=== PATIENT | male | born 1995 | race Caucasian/White ===

== ENCOUNTER 2018-05-26 01:21 | Emergency (ER) | payer BC, OTHER ==
[~2018-05-26] VITALS: Ht 172.7 cm; Wt 87.3 kg
[~2018-05-26 01:21] MED LIST: ARIP5TAB12 PO; ARIP5TAB20 PO; BUSP10TA95 PO; BUSP5TAB59 PO; MIRT15TA3 PO; MIRT30TA6 PO; SULF1TAB38 PO
[2018-05-26] MEDS ORDERED: LACTATED RINGERS 1,000 ML IV ONE ×2 (01:28→02:13)
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
[2018-05-26 01:48] LABS: BILIRUBIN,URINE NEGATIVE (NEGATIVE); CLARITY,URINE CLEAR; COLOR,URINE YELLOW; GLUCOSE, URINE (UA) NEGATIVE (NEGATIVE); KETONES,URINE NEGATIVE (NEGATIVE); LEUKOCYTE ESTERASE ,URINE NEGATIVE (NEGATIVE); NITRITE,URINE NEGATIVE (NEGATIVE); PH,URINE 5 (5-9); PROTEIN,URINE NEGATIVE (NEGATIVE); UROBILINOGEN,URINE NORMAL (NORMAL)
[2018-05-26 01:49] LABS: BASOPHILS % (AUTO) 0 % (0-10); EOSINOPHILS % (AUTO) 0 % (0-10); HEMATOCRIT 43 % (40-54); HEMOGLOBIN 14.1 G/DL (13.3-17.7); LYMPHOCYTES # (AUTO) 2.1 X 10^3 (1.0-4.0); LYMPHOCYTES % (AUTO) 29 % (12-44); MEAN CORPUSCULAR HEMOGLOBIN 29 PG (25-34); MEAN CORPUSCULAR HGB CONC 33 G/DL (32-36); MEAN CORPUSCULAR VOLUME 87 FL (80-99); MEAN PLATELET VOLUME 10.2 FL (7.4-10.4); MONOCYTES # (AUTO) 0.5 X 10^3 (0.0-1.0); MONOCYTES % (AUTO) 7 % (0-12); NEUTROPHILS # (AUTO) 4.6 X 10^3 (1.8-7.8); NEUTROPHILS % (AUTO) 64 % (42-75); PLATELET COUNT 232 10^3/uL (130-400); RED BLOOD COUNT 4.92 10^6/uL (4.35-5.85); WHITE BLOOD COUNT 7.2 10^3/uL (4.3-11.0)
[2018-05-26 02:03] LABS: AMPHETAMINE SCREEN, URINE NEGATIVE (NEGATIVE); BACTERIA,URINE NEGATIVE /HPF; BARBITURATE SCREEN URINE NEGATIVE (NEGATIVE); BENZODIAZEPINES SCREEN URINE NEGATIVE (NEGATIVE); CANNABINOID SCREEN, URINE POSITIVE (NEGATIVE); COCAINE SCREEN URINE NEGATIVE (NEGATIVE); METHADONE STAT NEGATIVE (NEGATIVE); METHAMPHETAMINE SCREEN URINE S NEGATIVE (NEGATIVE); OPIATE SCREEN URINE NEGATIVE (NEGATIVE); OXYCODONE STAT NEGATIVE (NEGATIVE); PROPOXYPHENE STAT NEGATIVE (NEGATIVE); SQUAMOUS EPITHELIAL CELL,UR RARE /HPF; TRICYCLIC ANTIDEPRESSANTS SCRE NEGATIVE (NEGATIVE)
[2018-05-26 02:07] LABS: ALANINE AMINOTRANSFERASE 17 U/L (0-55); ALBUMIN 4.9 GM/DL (3.2-4.5); ALKALINE PHOSPHATASE 67 U/L (40-136); BILIRUBIN,TOTAL 0.5 MG/DL (0.1-1.0); BUN/CREATININE RATIO 12; CALCIUM 9.1 MG/DL (8.5-10.1); CARBON DIOXIDE 24 MMOL/L (21-32); CHLORIDE 107 MMOL/L (98-107); CREATININE SERUM 0.94 MG/DL (0.60-1.30); GFR ESTIMATED > 60; GLUCOSE 132 MG/DL (70-105); POTASSIUM 4.3 MMOL/L (3.6-5.0); SODIUM 144 MMOL/L (135-145); TOTAL PROTEIN 7.8 GM/DL (6.4-8.2)
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
[2018-05-26 03:10] VITALS: BP 116/87
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
== END 2018-05-26 03:08 | disposition home or self-care (01) ==
LOC: EDUNIT# 01:21 → ER 01:23
DX: Z04.1 Encounter for examination and observation following transport accident (principal); F10.129 Alcohol abuse with intoxication, unspecified; F12.10 Cannabis abuse, uncomplicated; F41.9 Anxiety disorder, unspecified; F32.9 Major depressive disorder, single episode, unspecified; R40.2142 Coma scale, eyes open, spontaneous, at arrival to emergency department; R40.2242 Coma scale, best verbal response, confused conversation, at arrival to emergency department; R40.2362 Coma scale, best motor response, obeys commands, at arrival to emergency department; F17.210 Nicotine dependence, cigarettes, uncomplicated; Z90.89 Acquired absence of other organs; Z91.5 Personal history of self-harm; V48.6XXA Car passenger injured in noncollision transport accident in traffic accident, initial encounter
CPT/HCPCS: 36415; 70450; 71045; 72125; 72170; 80053; 80306; 80320; 81000; 85025

== ENCOUNTER 2020-07-16 04:08 | Emergency (ER) | payer BC ==
[~2020-07-16] VITALS: Ht 173 cm; Wt 99.8 kg
[~2020-07-16 04:08] MED LIST changes: -ARIP5TAB20 PO; +ARIP5TAB57 PO
[2020-07-16 04:15] VITALS: BP 145/106
[2020-07-16] MEDS ORDERED: TETANUS,DIPTH,PERTUSS P/F (BOOSTRIX) 0.5 ML VIAL IM ONE ×2 (04:18→04:30)
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
== END 2020-07-16 04:32 | disposition home or self-care (01) ==
LOC: EDUNIT# 04:08 → ER 04:13
DX: S01.01XA Laceration without foreign body of scalp, initial encounter (principal); S09.90XA Unspecified injury of head, initial encounter; F17.210 Nicotine dependence, cigarettes, uncomplicated; F17.290 Nicotine dependence, other tobacco product, uncomplicated; Z23 Encounter for immunization; Z82.49 Family history of ischemic heart disease and other diseases of the circulatory system; X58.XXXA Exposure to other specified factors, initial encounter
CPT/HCPCS: 90715; 99284

== ENCOUNTER 2021-08-22 05:46 | Observation (INO) | payer BC ==
[~2021-08-22] VITALS: Ht 172 cm; Wt 100.0 kg
[2021-08-22] VITALS (11 sets, daily range): BP systolic 126–167; BP diastolic 75–127
[~2021-08-22 05:46] MED LIST changes: +MIRT-69 PO; -MIRT30TA6 PO
[2021-08-22] MEDS ORDERED: morphine INJ 10 MG/ML 1ML (SYR OR VIAL) IVP STA (06:04)
[2021-08-22 06:12] LABS: BASOPHILS # (AUTO) 0.1 10^3/uL (0.0-0.1); BASOPHILS % (AUTO) 1 % (0-10); EOSINOPHILS % (AUTO) 0 % (0-10); LYMPHOCYTES # (AUTO) 3.4 10^3/uL (1.0-4.0); LYMPHOCYTES % (AUTO) 35 % (12-44); MEAN CORPUSCULAR HGB CONC 34 g/dL (32-36); MEAN CORPUSCULAR VOLUME 89 fL (80-99); MEAN PLATELET VOLUME 9.5 fL (9.0-12.2); MONOCYTES # (AUTO) 0.7 10^3/uL (0.0-1.0); MONOCYTES % (AUTO) 7 % (0-12); NEUTROPHILS # (AUTO) 5.6 10^3/uL (1.8-7.8); NEUTROPHILS % (AUTO) 57 % (42-75)
[2021-08-22 06:16] LABS: WHITE BLOOD COUNT 10.9 10^3/uL (4.3-11.0)
[2021-08-22 06:17] LABS: HEMATOCRIT 47 % (40-54); MEAN CORPUSCULAR HEMOGLOBIN 30 pg (25-34); PLATELET COUNT 279 10^3/uL (130-400)
[2021-08-22 06:28] LABS: ALBUMIN 4.8 GM/DL (3.2-4.5); CHLORIDE 106 MMOL/L (98-107); SODIUM 140 MMOL/L (135-145)
[2021-08-22 06:29] LABS: CALCIUM 8.9 MG/DL (8.5-10.1)
[2021-08-22 06:30] LABS: GLUCOSE 136 MG/DL (70-105)
[2021-08-22 06:32] LABS: BILIRUBIN,TOTAL 0.4 MG/DL (0.1-1.0); CARBON DIOXIDE 18 MMOL/L (21-32)
[2021-08-22 06:34] LABS: ALKALINE PHOSPHATASE 68 U/L (40-136); GFR ESTIMATED 122
[2021-08-22 06:35] LABS: BUN/CREATININE RATIO 10
[2021-08-22 06:37] LABS: ALANINE AMINOTRANSFERASE 46 U/L (0-55)
--- NOTE | 2021-08-22 06:40 | Diagnostic Imaging Report ---
INDICATION: Jogging and tripped in a pothole, pain. TECHNIQUE: AP and lateral views of the left tibia and fibula CORRELATION STUDY: None FINDINGS: Predominantly transversely oriented about the comminuted fractures involving the mid diaphysis of the tibia and fibula. More prominent bony fragmentation at the fibular fracture fragment. There is a lateral displacement of the main distal fracture fragments approximately half the width of the bone. Also slight dorsal angulation present. Limited visualized portion of the knee and ankle maintained. Soft tissue edema in and around the fractures. No definitive foreign body or abnormal gas collection. IMPRESSION: 1.Transversely oriented, comminuted slightly displaced and angulated fractures of the mid tibia and fibula. Dictated by: Dictated on workstation # [id number]
--- NOTE | 2021-08-22 07:06 | ED Lower Extremity ---
General Chief Complaint: Lower Extremity Stated Complaint: LEFT LEG INJURY,TRIPPED IN POT HOLE Nursing Triage Note: Pt brought to ER via wheelchair. Pt states he was jogging and he fell into a pot hole. He is c/o severe pain to the left tib/fib and there is obvious unstable deformity present with swelling and bruising. There is pedal pulses present. Patient also has multiple abrasions to the right elbow. Patient states last oral intake was at 21:00 and it was a tall bud light beer. Source: patient Exam Limitations: no limitations History of Present Illness Date Seen by Provider: Aug 22, 2021 Time Seen by Provider: 06:00 Initial Comments This 26-year-old young man presents to the emergency room with injury to the left lower leg with obvious deformity. Last night was his birthday and he celebrated with excessive alcohol consumption. He went out to take a walk behind his home and stepped in a pothole causing the injury. He has abrasions to the right elbow without any apparent bony injury. He denies any injury to his head, neck, or any other body part. He initially reported n.p.o. time of 2200, but his corrects that to 0500 when she took his last beer away from him. Last solid food was 1800. Patient reports he used to drink 3 or more days per week, but in recent weeks that has been reduced. He denies daily alcohol consumption or alcohol dependence. He denies drug use but there did appear to be marijuana in his pocket that fell out during assessment. Allergies and Home Medications Allergies Coded Allergies: No Known Drug Allergies (Unverified , 03/10/11) Patient Home Medication List Home Medication List Reviewed: Yes No Active Prescriptions or Reported Meds Review of Systems Constitutional: see HPI, other (Alcohol intoxication) EENTM: no symptoms reported Respiratory: no symptoms reported Cardiovascular: no symptoms reported Gastrointestinal: no symptoms reported Genitourinary: no symptoms reported Musculoskeletal: see HPI Skin: no symptoms reported Psychiatric/Neurological: See HPI (Alcohol intoxication) Past Rxrgicd-Dppfyp-Ohbghx Hx Patient Social History Tobacco Use?: No Smokeless Tobacco Frequency: Never a User Use of E-Cig and/or Vaping dev: No Substance use?: Yes Substance type: Marijuana Additional substance use comme: last marijuana use was 2 days ago Substance frequency: Couple times a week Alcohol Use?: Yes Alcohol type: Beer Pt feels they are or have been: No Immunizations Up To Date Tetanus Booster (TDap): Unknown PED Vaccines UTD: No Influenza Vaccine Up-to-Date: No; Not Current Seasonal Allergies Seasonal Allergies: No Past Medical History Surgery/Hospitalization HX: tear duct surgery Surgeries: Yes (LACRIMAL DUCT, WISDOM TEETH) Tonsillectomy Respiratory: No Cardiac: No Neurological: No Reproductive Disorders: No Sexually Transmitted Disease: No HIV/AIDS: No Genitourinary: No Gastrointestinal: No Musculoskeletal: No Endocrine: No HEENT: No Cancer: No Psychosocial: Yes (History of alcohol abuse) Anxiety, Suicide Attempts, Depression Integumentary: No Blood Disorders: No Adverse Reaction/Blood Tranf: No Family Medical History Hypertension 19 FATHER Psychosocial problem 19 MOTHER Physical Exam Vital Signs Vital Signs - First Documented 08/22/21 05:54 Temp 36.3 Pulse 113 Resp 22 B/P (MAP) 135/75 (95) Pulse Ox 96 O2 Delivery Room Air Capillary Refill : Less Than 3 Seconds Height, Weight, BMI Height: 5'8.00" Weight: 192lbs. 8.0oz. [id number]; 33.00 BMI Method:Estimated General Appearance: WD/WN, moderate distress HEENT: PERRL/EOMI, normal ENT inspection, other (Oropharynx somewhat dry) Neck: normal inspection Cardiovascular: no murmur, tachycardia, other (Palpable dorsal pedal pulse in the left foot) Respiratory: lungs clear, normal breath sounds, no respiratory distress Gastrointestinal: normal bowel sounds, non tender, soft Hips: bilateral hip non-tender, bilateral hip normal inspection Legs: right leg non-tender, right leg normal inspection, right leg normal range of motion; left leg bone tenderness, left leg deformity, left leg ecchymosis, left leg pain Knees: bilateral knee non-tender, bilateral knee normal inspection, bilateral knee no evidence of injury Ankles: bilateral ankle non-tender, bilateral ankle normal inspection, ghassan ateral ankle normal range of motion, bilateral ankle no evidence of injury Feet: bilateral foot non-tender, bilateral foot normal inspection, bilateral foot normal range of motion, bilateral foot no evidence of injury Neurologic/Tendon: normal sensation, normal tendon functions Neurologic/Psychiatric: 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-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 as tested, no motor/sensory deficits, alert, normal mood/affect, oriented x 3, other (Intoxicated but alert and oriented) Skin: normal color, warm/dry Procedures/Interventions Splinting and Joint Reduction : Pre-Proc Neuro Vasc Exam: normal Post-Proc Neuro Vasc Exam: normal Hand-Made Type: fiberglass Splint Application: Long Leg (Posterior splint applied just past the knee with stirrup added) Progress/Results/Core Measures Results/Orders Lab Results Laboratory Tests Test 08/22/21 00:00 08/22/21 06:03 Range/Units White Blood Count 10.9 4.3-11.0 10^3/uL Red Blood Count 5.33 4.30-5.52 10^6/uL Hemoglobin 16.0 13.3-17.7 g/dL Hematocrit 47 40-54 % Mean Corpuscular Volume 89 80-99 fL Mean Corpuscular Hemoglobin 30 25-34 pg Mean Corpuscular Hemoglobin Concent 34 32-36 g/dL Red Cell Distribution Width 12.3 10.0-14.5 % Platelet Count 279 130-400 10^3/uL Mean Platelet Volume 9.5 9.0-12.2 fL Immature Granulocyte % (Auto) 0 % Neutrophils (%) (Auto) 57 42-75 % Lymphocytes (%) (Auto) 35 12-44 % Monocytes (%) (Auto) 7 0-12 % Eosinophils (%) (Auto) 0 0-10 % Basophils (%) (Auto) 1 0-10 % Neutrophils # (Auto) 5.6 1.8-7.8 10^3/uL Lymphocytes # (Auto) 3.4 1.0-4.0 10^3/uL Monocytes # (Auto) 0.7 0.0-1.0 10^3/uL Eosinophils # (Auto) 0.0 0.0-0.3 10^3/uL Basophils # (Auto) 0.1 0.0-0.1 10^3/uL Immature Granulocyte # (Auto) 0.0 0.0-0.1 10^3/uL Sodium Level 140 135-145 MMOL/L Potassium Level 4.0 3.6-5.0 MMOL/L Chloride Level 106 98-107 MMOL/L Carbon Dioxide Level 18 L 21-32 MMOL/L Anion Gap 16 H 5-14 MMOL/L Blood Urea Nitrogen 9 7-18 MG/DL Creatinine 0.90 0.60-1.30 MG/DL Estimat Glomerular Filtration Rate 122 BUN/Creatinine Ratio 10 Glucose Level 136 H 70-105 MG/DL Calcium Level 8.9 8.5-10.1 MG/DL Corrected Calcium 8.5-10.1 MG/DL Total Bilirubin 0.4 0.1-1.0 MG/DL Aspartate Amino Transf (AST/SGOT) 54 H 5-34 U/L Alanine Aminotransferase (ALT/SGPT) 46 0-55 U/L Alkaline Phosphatase 68 40-136 U/L Total Protein 8.0 6.4-8.2 GM/DL Albumin 4.8 H 3.2-4.5 GM/DL Serum Alcohol 274 H <10 MG/DL My Orders Orders - NILESH ALEGRIA MD Alcohol (08/22/21 06:04) Cbc With Automated Diff (08/22/21 06:04) Comprehensive Metabolic Panel (08/22/21 06:04) Drug Screen Stat (Urine) (08/22/21 06:04) Ed Iv/Invasive Line Start (08/22/21 06:04) Morphine Injection (Morphine Injection (08/22/21 06:04) Tibia/Fibula, Left, 2 Views (08/22/21 06:04) Tibia/Fibula, Left, 2 Views (08/22/21 06:37) Vital Signs/I&O 08/22/21 05:54 Temp 36.3 Pulse 113 Resp 22 B/P (MAP) 135/75 (95) Pulse Ox 96 O2 Delivery Room Air Blood Pressure Mean: 95 Progress Progress Note : Time: 07:17 Progress Note Patient was seen and examined upon arrival. Pain was controlled with morphine 5 mg IV. X-rays were promptly obtained and a three-way splint was applied for immobilization. Dorsal pedal pulse was checked numerous times before and after splint placement and remained palpable. Case was reviewed with Dr. Bean who requested admission in preparation for surgery. Diagnostic Imaging Diagonstic Imaging: Xray Plain Films/CT/US/NM/MRI: leg Comments Initial tib-fib x-rays viewed by me and report reviewed. See report below: NAME: SARITHA LIZAMA MED REC#: [id number] PT STATUS: REG ER : 1995 PHYSICIAN: NILESH ALEGRIA MD ADMIT DATE: 08/22/21/ER Draft Date of Exam:08/22/21 TIBIA/FIBULA, LEFT, 2 VIEWS INDICATION: Jogging and tripped in a pothole, pain. TECHNIQUE: AP and lateral views of the left tibia and fibula CORRELATION STUDY: None FINDINGS: Predominantly transversely oriented about the comminuted fractures involving the mid diaphysis of the tibia and fibula. More prominent bony fragmentation at the fibular fracture fragment. There is a lateral displacement of the main distal fracture fragments approximately half the width of the bone. Also slight dorsal angulation present. Limited visualized portion of the knee and ankle maintained. Soft tissue edema in and around the fractures. No definitive foreign body or abnormal gas collection. IMPRESSION: 1.Transversely oriented, comminuted slightly displaced and angulated fractures of the mid tibia and fibula. Dictated on workstation # [id number] Dict: 08/22/21 0628 Trans: 08/22/21 0638 CVB [id number] Interpreted by: FELY SPAULDING DO Diagonstic Imaging: Xray Plain Films/CT/US/NM/MRI: leg Comments X-rays obtained post splint. X-rays viewed and report reviewed. See report b elow: NAME: SARITHA LIZAMA [facility] REC#: [id number] PT STATUS: REG ER : 1995 PHYSICIAN: NILESH ALEGRIA MD ADMIT DATE: 08/22/21/ER Draft Date of Exam:08/22/21 TIBIA/FIBULA, LEFT, 2 VIEWS INDICATION: Fracture, postreduction/splinting TECHNIQUE: AP and lateral views of the left tibia and fibula 6:40 AM CORRELATION STUDY: Same day FINDINGS: Comminuted, transversely oriented fractures of the tibia and fibula shafts are again demonstrated. There is a very slight anterior and lateral displacement of distal fracture fragments but overall improved post reduction. No significant angulation. Splint material has been placed. IMPRESSION: 1.Comminuted, transversely oriented fractures of the mid and left tibia and fibula. Very slight anterior lateral displacement of distal fracture fragments postreduction. Dictated on workstation # [id number] Dict: 08/22/21 0700 Trans: 08/22/21 0709 CVB [id number] Interpreted by: FELY SPAULDING DO Departure Communication (Admissions) Time/Spoke to Admitting Phy: 06:50 Dr. Bean Impression Primary Impression: Fracture of left tibia and fibula Qualified Codes: S82.202A - Unspecified fracture of shaft of left tibia, initial encounter for closed fracture; S82.402A - Unspecified fracture of shaft of left fibula, initial encounter for closed fracture Additional Impression: Alcohol intoxication Qualified Codes: F10.929 - Alcohol use, unspecified with intoxication, unspecified Disposition: ADMITTED INPATIENT Condition: Improved Admissions Decision to Admit Reason: Admit from ER (Trauma) Decision to Admit/Date: Aug 22, 2021 Time/Decision to Admit Time: 06:50 Departure-Patient Inst. Referrals: [facility] (PCP) Primary Care Physician NO,LOCAL PHYSICIAN (Family) Primary Care Physician Scripts No Active Prescriptions or Reported Meds NILESH ALEGRIA MD Aug 22, 2021 07:06
--- NOTE | 2021-08-22 07:10 | Diagnostic Imaging Report ---
INDICATION: Fracture, postreduction/splinting TECHNIQUE: AP and lateral views of the left tibia and fibula 6:40 AM CORRELATION STUDY: Same day FINDINGS: Comminuted, transversely oriented fractures of the tibia and fibula shafts are again demonstrated. There is a very slight anterior and lateral displacement of distal fracture fragments but overall improved post reduction. No significant angulation. Splint material has been placed. IMPRESSION: 1.Comminuted, transversely oriented fractures of the mid and left tibia and fibula. Very slight anterior lateral displacement of distal fracture fragments postreduction. Dictated by: Dictated on workstation # [id number]
[2021-08-22] MEDS ORDERED: CATHETER FLUSH 10 ML SYR IVP PRN (07:45)
[2021-08-22] MEDS ORDERED: ONDANSETRON 4 MG/2 ML (SDV) Z0FRAN IV PRN (07:45)
[2021-08-22] MEDS: LACTATED RINGERS 1,000 ML IV SCH ×3 (08:19→20:37)
[2021-08-22] MEDS: morphine INJ 10 MG/ML 1ML (SYR OR VIAL) IV PRN ×6 (08:20→23:40)
--- NOTE | 2021-08-22 09:36 | History & Physical Orthopedic ---
History and Physical Subjective Date of Exam 08/22/21 Chief Complaint Closed fracture midshaft left tibia and fibula HPI/Events since last exam Rui colmenares is a 26-year-old white male who was drinking last evening to celebrate his birthday. His stated he was drinking up to about 5:00. He w ent outside to walk and stepped in a pothole sustaining injury to his left lower extremity. He was seen in the emergency room where is evaluated and x-rayed noted to have a midshaft fracture of the left tibia and fibula. This was a closed injury. He was splinted and admitted for surgical treatment. He denies any previous injury to the leg. His only other injuries were abrasions to the right elbow. 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 He is alert and oriented HEENT: [Within normal limit] Neck: [No pain with palpation or range of motion] Cardiovascular: [Regular rhythm without murmurs] Respiratory: [Lungs clear] Gastrointestinal: []Negative Genitourinary: []Within normal limits Skin: [Abrasions right elbow] Back/Spine: [No pain with palpation] Extremities: [Full range of motion both upper extremities. Abrasion posterior aspect right elbow and proximal forearm. Normal sensation with good cap refill. Equal pulses. No deformity or crepitation. Lower extremitiesleft lower extremity is splinted. I opened up his splint over his foot and he has a good dorsalis pedis pulse. Normal sensation of the foot and toes with good cap refill. No pain with range of motion of the foot and toes. No pain palpation left knee or left hip. Gentle range of motion left hip causes no pain. Right lower extremity has no pain right hip right knee or right ankle. Normal sensation with good cap refill good pulses. No deformity or crepitation.] Neurologic: []Intact Psychiatric: [] Hematologic/lymphatic/immunologic: [] Vital Signs Vital Signs Date Time Temp Pulse Resp B/P (MAP) Pulse Ox O2 Delivery O2 Flow Rate FiO2 08/22/21 08:53 36.6 106 20 126/80 (95) 96 Room Air 08/22/21 07:30 100 Room Air 08/22/21 07:13 36.3 100 18 135/75 100 Room Air 08/22/21 07:03 99 18 135/75 96 Room Air 08/22/21 05:54 36.3 113 22 135/75 (95) 96 Room Air Lab Results Laboratory Tests 08/22/21 00:00: 08/22/21 06:03: White Blood Count 10.9, Red Blood Count 5.33, Hemoglobin 16.0, Hematocrit 47, Mean Corpuscular Volume 89, Mean Corpuscular Hemoglobin 30, Mean Corpuscular Hemoglobin Concent 34, Red Cell Distribution Width 12.3, Platelet Count 279, Mean Platelet Volume 9.5, Immature Granulocyte % (Auto) 0, Neutrophils (%) (Auto) 57, Lymphocytes (%) (Auto) 35, Monocytes (%) (Auto) 7, Eosinophils (%) (Auto) 0, Basophils (%) (Auto) 1, Neutrophils # (Auto) 5.6, Lymphocytes # (Auto) 3.4, Monocytes # (Auto) 0.7, Eosinophils # (Auto) 0.0, Basophils # (Auto) 0.1, Immature Granulocyte # (Auto) 0.0, Sodium Level 140, Potassium Level 4.0, Chloride Level 106, Carbon Dioxide Level 18L, Anion Gap 16H, Blood Urea Nitrogen 9, Creatinine 0.90, Estimat Glomerular Filtration Rate 122, BUN/Creatinine Ratio 10, Glucose Level 136H, Calcium Level 8.9, Corrected Calcium , Total Bilirubin 0.4, Aspartate Amino Transf (AST/SGOT) 54H, Alanine Aminotransferase (ALT/SGPT) 46, Alkaline Phosphatase 68, Total Protein 8.0, Albumin 4.8H, Serum Alcohol 274H Imaging X-rays were reviewed of the right tibia and fibula which shows a comminuted midshaft fracture of the fibula and oblique fracture of the tibial shaft. No fractures at the knee or ankle. Assessment and Plan Assessment Closed midshaft fracture left tibia and fibula Problem List Closed midshaft fracture left tibia and fibula Plan Treatment options were discussed with the patient both nonsurgical and surgical. If he chooses nonsurgical treatment he would be treated with a long-leg cast for approximately 4 months. There is a chance that the fracture may not heal or there may be a malunion. Surgical treatment options were discussed including IM rodding and plating. If he chooses surgical treatment I would recommend closed IM rodding. I discussed risks including infection, swelling, compartment syndrome, neurovascular injury, potential amputation if infection or compartment syndrome develops. Wound healing and nonunion.After discussion he would like to proceed with surgical treatment, closed IM rodding. He is n.p.o. since 0500. He has had no solid foods since last evening.His stated he had a beer at 5:00 but he does not remember.I discussed the procedure again as well as the risks and complications and he would like to proceed. Final Diagonsis Closed midshaft fracture left tibia and fibula Level of the visit: Level 3 SOPHIA CHEN MD Aug 22, 2021 09:36
[2021-08-22 09:58] LABS: AMPHETAMINE SCREEN, URINE NEGATIVE (NEGATIVE); BARBITURATE SCREEN URINE NEGATIVE (NEGATIVE); BENZODIAZEPINES SCREEN URINE NEGATIVE (NEGATIVE); CANNABINOID SCREEN, URINE POSITIVE (NEGATIVE); COCAINE SCREEN URINE NEGATIVE (NEGATIVE); METHADONE STAT NEGATIVE (NEGATIVE); METHAMPHETAMINE SCREEN URINE S NEGATIVE (NEGATIVE); OPIATE SCREEN URINE POSITIVE (NEGATIVE); OXYCODONE STAT NEGATIVE (NEGATIVE); PROPOXYPHENE STAT NEGATIVE (NEGATIVE); TRICYCLIC ANTIDEPRESSANTS SCRE NEGATIVE (NEGATIVE)
[2021-08-22] MEDS ORDERED: NEO/POLY/BAC (NEOSPORIN) OINT 15 GM TUBE ONE (10:46)
[2021-08-22] MEDS: LACTATED RINGERS 1,000 ML IV PRN ×2 (11:12→12:15)
[2021-08-22] MEDS ORDERED: ceFAZolin INJECTION 2,000 MG ONE (11:18)
[2021-08-22] MEDS ORDERED: fentaNYL INJ 100 MCG/2 ML AMP ONE ×2 (11:29→14:01)
[2021-08-22] MEDS ORDERED: proPOfol 200 MG/20 ML (DIPRIVAN) VIAL IV ONE (11:29)
[2021-08-22] MEDS ORDERED: LIDOCAINE PF 2% 5 ML (XYLOCAINE) VIAL ONE (11:29)
[2021-08-22] MEDS ORDERED: SUCCINYLCHOLINE INJ 20 MG/1 ML 10 ML VIAL ONE (11:29)
[2021-08-22] MEDS ORDERED: ROCURONIUM 10 MG/ML 5 ML SYRINGE IV ONE (11:29)
[2021-08-22] MEDS ORDERED: MIDAZOLAM 2 MG/2 ML (VERSED) VIAL ONE (11:29)
[2021-08-22] MEDS ORDERED: ceFAZolin INJECTION 1,000 MG VIAL IV ONE (11:30)
[2021-08-22] MEDS ORDERED: ONDANSETRON 4 MG/2 ML (SDV) Z0FRAN ONE (11:52)
[2021-08-22] MEDS ORDERED: SEVOFLURANE (ULTANE) 15 ML INHAL SOLN ONE (13:42)
[2021-08-22] MEDS ORDERED: ONDANSETRON 4 MG/2 ML (SDV) Z0FRAN IVP PRN (14:00)
[2021-08-22] MEDS ORDERED: morphine INJ 10 MG/ML 1ML (SYR OR VIAL) IVP ONE (14:00)
[2021-08-22] MEDS ORDERED: HYDROmorphone 2 MG/ML VIAL (DILAUDID) IV ONE (14:00)
[2021-08-22] MEDS ORDERED: MEPERIDINE (DEMEROL) INJ 50 MG/ML IVP ONE (14:00)
[2021-08-22] MEDS ORDERED: fentaNYL INJ 100 MCG/2 ML AMP IVP ONE (14:00)
--- NOTE | 2021-08-22 14:21 | Operative Report - Ortho ---
Operative Report Surgeon (s)/Vertical Lathe Operator (s) Surgeon SOPHIA CHEN MD Vertical Lathe Operator n/a Pre-Operative Diagnosis Closed midshaft fracture left tibia and fibula Post-Operative Diagnosis same Operative Report Date of Procedure: Aug 22, 2021 Name of Procedure Performed: Closed IM rodding left tibia fracture with a 315 mm x 11 mm mary with 2 proximal and 2 distal locking screws Description & Findings The patient was seen in the preoperative area and he had no further questions or concerns. He was then taken to the operating room in his hospital bed and placed on the OR table. He was given 2 g Ancef IV preoperatively. After administration of general anesthesia his splint was removed from his left lower extremity. He had a good dorsalis pedis and posterior tibial pulse. Good capillary refill of his toes. Soft compartments. No open wounds. He did have some bruising over the fracture site anterior medial tibia. Inderjit was placed on the left thigh and the left foot and leg were prepped and draped in the usual sterile manner. The tourniquet was not inflated. Image was used to visualize the knee and a guidepin was placed over the central aspect of the proximal tibia. The skin was marked after marking landmarks. Incision was then made over the patella tendon from the inferior pole the patella to the tibial tubercle. This was taken down through subtenons tissue. Bleeders were cauterized. The peritenon was then split and the tendon was then split digital dissection was carried down to the anterior aspect of the proximal tibia. The fat was elevated minimally to allow good exposure to the anterior aspect of the proximal tibia. A guidewire was then inserted and visualized on the AP view and was in good position central in the tibia and on the lateral view in good position. This was then overreamed with the reamer with a tissue protector. A long guidewire was then inserted into the proximal tibia fracture was reduced and a guidewire was advanced into the distal tibia down to just above the articular surface of the ankle. This was measured and a 315 mm mary was selected. The tibia was reamed up to 12-1/2 mm starting initially with 8.5 mm and cutter and then advancing and 1.0 mm then 0.5 mm reamers up to again 12.5 mm. Fracture was held reduced reaming across fracture site. Good cortical reaming was noted proximal to the fracture with the last few passes of the reamer. At this point the 350 mm x 11 mm mary was inserted down to just above the fracture site. The fracture was again held reduced as the mary was advanced down into the distal segment. Again this was placed to approximately 1 cm above the distal tibial articular surface. The oblique fracture was reduced and showed no comminution and good reduction was noted with no distraction. At this point using the guide to proximal locking screws were inserted in the static holes. These were measured after drilling and appropriate length screws were inserted. These were then checked and found within the mary in good position. Then distally screws were inserted from medial to lateral again drilling measuring and inserting appropriate length screws. Again the fracture remained in excellent alignment. X-rays were obtained of the proximal and distal tibia as well as the fracture site AP and lateral views. This point the wounds were irrigated with normal saline. The patella tendon was closed with 0 Vicryl. Subcutaneous tissue with 2-0 Vicryl and skin with skin clips. Small raymond incisions for the 4 locking screws were closed with akilah. Wounds were dressed with antibiotic ointment, Adaptic and 4 x 4's. Knee was wrapped with Curlex and the foot and lower leg were wrapped with web roll. A posterior and sugar tong splint were applied to the lower leg which were wrapped with Hai wraps up to above the knee. Prior to applying the splint, the compartments were soft posterior as well as anterior and lateral. Patient had a good dorsalis pedis and posterior tibial pulse with good capillary refill of the foot and toes and pink toes. After applying the splint the patient was transferred to recovery room in good condition, he tolerated procedure well. Blood loss75 mL Replacementnone Drainsnone Complicationsnone n/a Anesthesia Type General Estimated Blood Loss 75 mL Packing none. Specimen(s) collected/removed None SOPHIA CHEN MD Aug 22, 2021 14:21
--- NOTE | 2021-08-22 15:19 | Progress Note - Ortho ---
Progress Note Subjective Date of Exam 08/22/21 Chief Complaint Postop visit HPI/Events since last exam Rui just returned to the floor from recovery room. He has not had any pain since he returned to the floor. He states he has quite a bit of pain although this talking to me he does not seem to be in that much pain.Apparently he they were able to control his pain very well in recovery room as he slept most of the time. Review of Systems No changes Allergies: Coded Allergies: No Known Drug Allergies (Unverified , 03/10/11) Home Meds No Active Prescriptions or Reported Meds Objective Exam Constitutional: [] HEENT: [] Neck: [] Cardiovascular: [] Respiratory: [] Gastrointestinal: [] Genitourinary: [] Skin: [] Back/Spine: [] Extremities: [Is good dorsalis pedis pulse. Is able to move his toes with minimal increased pain. Has normal sensation to his dorsum of the foot and toes with good cap refill] Neurologic: [] Psychiatric: [] Hematologic/lymphatic/immunologic: [] Vital Signs Vital Signs Date Time Temp Pulse Resp B/P (MAP) Pulse Ox O2 Delivery O2 Flow Rate FiO2 08/22/21 14:30 20 156/98 (117) 94 Nasal Cannula 3 08/22/21 14:20 20 159/100 (119) 94 OxyMask 3 08/22/21 14:10 20 147/99 (115) 96 OxyMask 3 08/22/21 14:00 20 144/92 (109) 100 OxyMask 5 08/22/21 13:56 36.4 20 143/95 (111) 100 OxyMask 6 08/22/21 08:53 36.6 106 20 126/80 (95) 96 Room Air 08/22/21 07:30 100 Room Air 08/22/21 07:13 36.3 100 18 135/75 100 Room Air 08/22/21 07:03 99 18 135/75 96 Room Air 08/22/21 05:54 36.3 113 22 135/75 (95) 96 Room Air Lab Results Laboratory Tests 08/22/21 06:03: White Blood Count 10.9, Red Blood Count 5.33, Hemoglobin 16.0, Hematocrit 47, Mean Corpuscular Volume 89, Mean Corpuscular Hemoglobin 30, Mean Corpuscular Hemoglobin Concent 34, Red Cell Distribution Width 12.3, Platelet Count 279, Mean Platelet Volume 9.5, Immature Granulocyte % (Auto) 0, Neutrophils (%) (Auto) 57, Lymphocytes (%) (Auto) 35, Monocytes (%) (Auto) 7, Eosinophils (%) (Auto) 0, Basophils (%) (Auto) 1, Neutrophils # (Auto) 5.6, Lymphocytes # (Auto) 3.4, Monocytes # (Auto) 0.7, Eosinophils # (Auto) 0.0, Basophils # (Auto) 0.1, Immature Granulocyte # (Auto) 0.0, Sodium Level 140, Potassium Level 4.0, Chloride Level 106, Carbon Dioxide Level 18L, Anion Gap 16H, Blood Urea Nitrogen 9, Creatinine 0.90, Estimat Glomerular Filtration Rate 122, BUN/Creatinine Ratio 10, Glucose Level 136H, Calcium Level 8.9, Corrected Calcium , Total Bilirubin 0.4, Aspartate Amino Transf (AST/SGOT) 54H, Alanine Aminotransferase (ALT/SGPT) 46, Alkaline Phosphatase 68, Total Protein 8.0, Albumin 4.8H, Serum Alcohol 274H 08/22/21 09:39: Urine Opiates Screen POSITIVEH, Urine Oxycodone Screen NEGATIVE, Urine Methadone Screen NEGATIVE, Urine Propoxyphene Screen NEGATIVE, Urine Barbiturates Screen NEGATIVE, Ur Tricyclic Antidepressants Screen NEGATIVE, Urine Phencyclidine Screen NEGATIVE, Urine Amphetamines Screen NEGATIVE, Urine Methamphetamines Screen NEGATIVE, Urine Benzodiazepines Screen NEGATIVE, Urine Cocaine Screen NEGATIVE, Urine Cannabinoids Screen POSITIVEH Assessment and Plan Assessment Doing well postop Problem List Unchanged Plan Continue elevation and ice, pain management Final Diagonsis Closed fracture midshaft right tibia and fibula Level of the visit: Level 3 SOPHIA CHEN MD Aug 22, 2021 15:19
[2021-08-22] MEDS: oxyCODONE/APAP 5/325MG (PERCOCET 5) TABLET PO PRN ×2 (16:35→20:37)
--- NOTE | 2021-08-22 17:03 | Diagnostic Imaging Report ---
INDICATION: Left leg fractures. TECHNIQUE: Intraoperative fluoroscopic views were obtained during intramedullary mary placement for tibial fracture. A total of six views was obtained in Surgery. 141.5 seconds of fluoroscopy time was used. FINDINGS: The intraoperative views demonstrate comminuted mid shaft fractures of the tibia and fibula. An intramedullary mary is seen in place in the tibial shaft with anatomic alignment of the major fracture fragments. IMPRESSION: Anatomic alignment of the tibial shaft fracture with an intramedullary mary in place. A fibular shaft fracture is also noted. Dictated by: Dictated on workstation # [id number]
[2021-08-22] MEDS: ceFAZolin 2 GM IV Premixed 50 ML IV SCH ×2 (18:24→19:40)
--- NOTE | 2021-08-22 20:24 | Progress Note - Ortho ---
Progress Note Subjective Date of Exam 08/22/21 Chief Complaint Postop HPI/Events since last exam Annual is postop closed IM rodding of his left tibia. When I saw him he was sleeping. He spoke with me about his pain which seems to be pretty well controlled with oral and IV pain medication. He states his toes feel fine with no numbness. He just does not feel like eating due to little nausea Review of Systems Unchanged Allergies: Coded Allergies: No Known Drug Allergies (Unverified , 03/10/11) Home Meds No Active Prescriptions or Reported Meds Objective Exam Constitutional: [] HEENT: [] Neck: [] Cardiovascular: [] Respiratory: [] Gastrointestinal: [] Genitourinary: [] Skin: [] Back/Spine: [] Extremities: [He can move his toes and has normal sensation. Good dorsalis pedis pulse. His toes are warm and he has good capillary refill. No pain with range of motion of the toes. He is unable to dorsiflex ankle secondary to his splint] Neurologic: [] Psychiatric: [] Hematologic/lymphatic/immunologic: [] Vital Signs Vital Signs Date Time Temp Pulse Resp B/P (MAP) Pulse Ox O2 Delivery O2 Flow Rate FiO2 08/22/21 20:06 Room Air 08/22/21 19:35 36.8 104 18 167/127 (140) 96 Room Air 08/22/21 15:30 37.1 98 20 158/106 (123) 95 Nasal Cannula 2.50 08/22/21 14:55 Room Air 3 08/22/21 14:55 36.4 20 157/99 (118) 95 Nasal Cannula 3 08/22/21 14:45 Room Air 3 08/22/21 14:40 20 157/89 (111) 95 Nasal Cannula 3 08/22/21 14:30 20 156/98 (117) 94 Nasal Cannula 3 08/22/21 14:30 Room Air 3 08/22/21 14:20 20 159/100 (119) 94 OxyMask 3 08/22/21 14:15 OxyMask 3 08/22/21 14:10 20 147/99 (115) 96 OxyMask 3 08/22/21 14:00 OxyMask 6 08/22/21 14:00 20 144/92 (109) 100 OxyMask 5 08/22/21 13:56 36.4 20 143/95 (111) 100 OxyMask 6 08/22/21 13:56 OxyMask 6 08/22/21 08:53 36.6 106 20 126/80 (95) 96 Room Air 08/22/21 07:30 100 Room Air 08/22/21 07:13 36.3 100 18 135/75 100 Room Air 08/22/21 07:03 99 18 135/75 96 Room Air 08/22/21 05:54 36.3 113 22 135/75 (95) 96 Room Air Lab Results Laboratory Tests 08/22/21 06:03: White Blood Count 10.9, Red Blood Count 5.33, Hemoglobin 16.0, Hematocrit 47, Mean Corpuscular Volume 89, Mean Corpuscular Hemoglobin 30, Mean Corpuscular Hemoglobin Concent 34, Red Cell Distribution Width 12.3, Platelet Count 279, Mean Platelet Volume 9.5, Immature Granulocyte % (Auto) 0, Neutrophils (%) (Auto) 57, Lymphocytes (%) (Auto) 35, Monocytes (%) (Auto) 7, Eosinophils (%) (Auto) 0, Basophils (%) (Auto) 1, Neutrophils # (Auto) 5.6, Lymphocytes # (Auto) 3.4, Monocytes # (Auto) 0.7, Eosinophils # (Auto) 0.0, Basophils # (Auto) 0.1, Immature Granulocyte # (Auto) 0.0, Sodium Level 140, Potassium Level 4.0, Chloride Level 106, Carbon Dioxide Level 18L, Anion Gap 16H, Blood Urea Nitrogen 9, Creatinine 0.90, Estimat Glomerular Filtration Rate 122, BUN/Creatinine Ratio 10, Glucose Level 136H, Calcium Level 8.9, Corrected Calcium , Total Bilirubin 0.4, Aspartate Amino Transf (AST/SGOT) 54H, Alanine Aminotransferase (ALT/SGPT) 46, Alkaline Phosphatase 68, Total Protein 8.0, Albumin 4.8H, Serum Alcohol 274H 08/22/21 09:39: Urine Opiates Screen POSITIVEH, Urine Oxycodone Screen NEGATIVE, Urine Methadone Screen NEGATIVE, Urine Propoxyphene Screen NEGATIVE, Urine Barbiturates Screen NEGATIVE, Ur Tricyclic Antidepressants Screen NEGATIVE, Urine Phencyclidine Screen NEGATIVE, Urine Amphetamines Screen NEGATIVE, Urine Methamphetamines Screen NEGATIVE, Urine Benzodiazepines Screen NEGATIVE, Urine Cocaine Screen NEGATIVE, Urine Cannabinoids Screen POSITIVEH Assessment and Plan Assessment Doing well postop Problem List Unchanged Plan Continue present treatment Final Diagonsis Closed midshaft fracture left tibia and fibula Level of the visit: Level 3 SOPHIA CHEN MD Aug 22, 2021 20:24
[2021-08-23] VITALS (7 sets, daily range): BP systolic 119–159; BP diastolic 69–96
[2021-08-23] MEDS: ceFAZolin 2 GM IV Premixed 50 ML IV SCH (05:31)
[2021-08-23 05:56] LABS: HEMOGLOBIN 13.7 g/dL (13.3-17.7)
[2021-08-23] MEDS: oxyCODONE/APAP 5/325MG (PERCOCET 5) TABLET PO PRN ×4 (08:06→21:25)
[2021-08-23] MEDS: ASPIRIN E.C. 81 MG (ECOTRIN) TAB PO SCH (08:08)
--- NOTE | 2021-08-23 09:49 | Physical Therapy Evaluation ---
PT Evaluation-General Medical Diagnosis Admission Date Aug 22, 2021 at 06:50 Medical Diagnosis: left tib/fib fx Onset Date: Aug 22, 2021 Therapy Diagnosis Therapy Diagnosis: impaired mobility Height/Weight Height (Feet): 5 Height (Inches): 8.00 Weight (Pounds): 192 Weight (Ounces): 8.0 Precautions Precautions/Isolations: Fall Prevention, Standard Precautions Weight Bear Status Right Lower Extremity: Right Full Weight Bearing Left Lower Extremity: Left Non Weight Bearing Referral Physician: Vikas Reason for Referral: Evaluation/Treatment Medical History Additional Medical History Past Medical History Surgery/Hospitalization HX: tear duct surgery Surgeries: Yes (LACRIMAL DUCT, WISDOM TEETH) Tonsillectomy Respiratory: No Cardiac: No Neurological: No Reproductive Disorders: No Sexually Transmitted Disease: No HIV/AIDS: No Genitourinary: No Gastrointestinal: No Musculoskeletal: No Endocrine: No HEENT: No Cancer: No Psychosocial: Yes (History of alcohol abuse) Anxiety, Suicide Attempts, Depression Integumentary: No Blood Disorders: No Adverse Reaction/Blood Tranf: No Reviewed History: Yes Social History Home: Single Level Current Living Status: Spouse Entry Into Home: Stairs Without Railing PT Steps Into Home: 2 Prior Prior Level of Function SCALE: Activities may be completed with or without assistive devices. 0-Nrxsbywsmc-cnklckv completes the activity by him/herself with no assistance from a helper. 5-Set-up or Clean-up Assistance-helper sets up or cleans up; patient completes activity. [place] assists only prior to or following the activity. 4-Supervision or Touching Assistance-helper provides verbal cues and/or touching/steadying and/or contact guard assistance as patient completes activi ty. Assistance may be provided throughout the activity or intermittently. 3-Partial/Moderate Assistance-helper does LESS THAN HALF the effort. [place] lifts, holds or supports trunk or limbs, but provides less than half the effort. 2-Substantial/Maximal Assistance-helper does MORE THAN HALF the effort. [place] lifts or holds trunk or limbs and provides more than half the effort. 0-Zceexaejw-apqsom does ALL the effort. Patient does none of the effort to complete the activity. Or, the assistance of 2 or more helpers is required for the patient to complete the activity. If activity was not attempted, code reason: 7-Patient Refused. 9-Not Applicable-not attempted and the patient did not perform the activity before the current illness, exacerbation or injury. 10-Not Attempted due to Environmental Limitations-(lack of equipment, weather restraints, etc.). 88-Not Attempted due to Medical Conditions or Safety Concerns. Bed Mobility: 6 Transfers (B,C,W/C): 6 Gait: 6 Stairs: 6 Indoor Mobility (Ambulation): Independent Stairs: Independent PT Evaluation-Current Subjective Patient in bed pre tx, agrees to PT, has 8/10 pain in his left knee Pt/Family Goals to be independent at home Objective Patient Orientation: Person, Place, Situation Attachments: IV ROM/Strength ROM Lower Extremities WNL except left knee and ankle Sensory Vision: Functional Hearing: Functional Sensation Right Lower Extremit: Intact Sensation Left Lower Extremity: Intact Transfers Roll Left to Right (QC): 6 Lying to Sitting/Side of Bed(Q: 3 Sit to Stand (QC): 3 Chair/Cet-ro-Qbfby Xfer(QC): 3 Patient has a lot of pain in left leg, needs to have it supported during supine to sit and during the transfer to recliner. Patient performed the transfer to recliner with min assist, he was compliant with NWB on the left leg. Balance Sitting Static: Normal Sitting Dynamic: Normal Standing Static: Fair Standing Dynamic: Fair Treatment BLE seated exercises x10 (toe curls on the left foot, LAQ) Assessment/Needs Patient in recliner post tx with nurse call, phone, tray, all needs met. Patient has impaired mobility, pain limits his movement and needs assist with supporting his left leg during activity. Rehab Potential: Fair PT [employer] Operator Goals Group Home Goals PT Group Home Goals Time Frame: Aug 30, 2021 Roll Left & Right (QC): 6 Sit to Lying (QC): 6 Lying-Sitting on Side/Bed(QC): 6 Sit to Stand (QC): 6 Chair/Avt-qj-Ufots Xfer(QC): 6 Walk 10 feet (QC): 4 PT Plan Problem List Problem List: Activity Tolerance, Functional Strength, Safety, Balance, Gait, Transfer, Bed Mobility, ROM Treatment/Plan Treatment Plan: Continue Plan of Care Treatment Plan: Bed Mobility, Education, Functional Activity Safia, Functional Strength, Gait, Safety, Therapeutic Exercise, Transfers Treatment Duration: Aug 30, 2021 Frequency: 11 times per week Estimated Hrs Per Day: .25 hour per day Patient and/or Family Agrees t: Yes Safety Risks/Education Patient Education: Transfer Techniques, Reviewed Precautions, Correct Positioning, Safety Issues Teaching Recipient: Patient Teaching Methods: Demonstration, Discussion Response to Teaching: Reinforcement Needed Discharge Recommendations Plan Patient will perform bed mobility and transfer training, balance and endurance training, functional strengthening, stair training, gait training, and education, to improve functional mobility and independence at home. Therapy Discharge Recommendati: Home & Family, Post Acute PT Time/GCodes Time In: 909 Time Out: 924 Total Billed Treatment Time: 15 Total Billed Treatment 1 visit EV 15' ANUEL DIAS PT Aug 23, 2021 09:49
--- NOTE | 2021-08-23 09:52 | Progress Note - Ortho ---
Progress Note Subjective Date of Exam 08/23/21 Chief Complaint POD#1 Closed IM rodding left tibia fracture HPI/Events since last exam Rui is doing fairly well this morning. He states he still has some pain that is fairly well controlled now with oral pain meds. Occasionally get some pain shooting down his leg or little bit of numbness or tingling. Occasionally have some increased pain anterior aspect of the knee. He states his toes do not feel numb although occasionally he will be a little funny feeling. He has not been up with therapy yet. Review of Systems Reviewed and no additions or change Allergies: Coded Allergies: No Known Drug Allergies (Unverified , 03/10/11) Home Meds No Active Prescriptions or Reported Meds Objective Exam Constitutional: [] HEENT: [] Neck: [] Cardiovascular: [] Respiratory: [] Gastrointestinal: [] Genitourinary: [] Skin: [] Back/Spine: [] Extremities: [Splint is intact. Good dorsalis pedis pulse. Good cap refill in his toes and dorsum of his foot. He can move his toes without any increased pain.Normal sensation in his toes.] Neurologic: [] Psychiatric: [] Hematologic/lymphatic/immunologic: [] Vital Signs Vital Signs Date Time Temp Pulse Resp B/P (MAP) Pulse Ox O2 Delivery O2 Flow Rate FiO2 08/23/21 07:55 35.9 90 20 150/95 (113) 94 Room Air 08/23/21 04:23 35.9 90 16 159/69 (99) 96 Room Air 08/22/21 23:56 36.1 87 16 154/101 (118) 96 Room Air 08/22/21 20:06 Room Air 08/22/21 19:35 36.8 104 18 167/127 (140) 96 Room Air 08/22/21 15:30 37.1 98 20 158/106 (123) 95 Nasal Cannula 2.50 08/22/21 14:55 Room Air 3 08/22/21 14:55 36.4 20 157/99 (118) 95 Nasal Cannula 3 08/22/21 14:45 Room Air 3 08/22/21 14:40 20 157/89 (111) 95 Nasal Cannula 3 08/22/21 14:30 20 156/98 (117) 94 Nasal Cannula 3 08/22/21 14:30 Room Air 3 08/22/21 14:20 20 159/100 (119) 94 OxyMask 3 08/22/21 14:15 OxyMask 3 08/22/21 14:10 20 147/99 (115) 96 OxyMask 3 08/22/21 14:00 OxyMask 6 08/22/21 14:00 20 144/92 (109) 100 OxyMask 5 08/22/21 13:56 36.4 20 143/95 (111) 100 OxyMask 6 08/22/21 13:56 OxyMask 6 I & O 08/23/21 07:00 Intake Total 2220 ml Output Total 2975 ml Balance -755 ml Lab Results Laboratory Tests 08/22/21 09:39: Urine Opiates Screen POSITIVEH, Urine Oxycodone Screen NEGATIVE, Urine Methadone Screen NEGATIVE, Urine Propoxyphene Screen NEGATIVE, Urine Barbiturates Screen NEGATIVE, Ur Tricyclic Antidepressants Screen NEGATIVE, Urine Phencyclidine Screen NEGATIVE, Urine Amphetamines Screen NEGATIVE, Urine Methamphetamines Screen NEGATIVE, Urine Benzodiazepines Screen NEGATIVE, Urine Cocaine Screen NEGATIVE, Urine Cannabinoids Screen POSITIVEH 08/23/21 05:36: Hemoglobin 13.7, Hematocrit 41 Microbiology 08/22/21 MRSA Screen - Final, Complete MRSA not isolated Assessment and Plan Assessment Doing well first day postop Problem List Closed midshaft fracture left tibia and fibula Hypertension Plan Continue present treatment. Physical therapy today. If he is comfortable he can go home this afternoon if not probably tomorrow. I talked to him about his blood pressure. Initially I thought it was from his fracture pain and postop pain but now that his pain is poorly well under control it still elevated. He states he has been told in the past that he may have a little bit of high blood pressure. His father had a high blood pressure as well. I spoke with Dr. Viera about it and he will see him in consultation and probably put him on some blood pressure medication. With his pain fairly well c ontrolled I would not expect his blood pressure to still be elevated from that. Final Diagonsis Closed midshaft fracture left tibia and fibula Status post IM rodding Level of the visit: Level 3 SOPHIA CHEN MD Aug 23, 2021 09:52
[2021-08-23] MEDS ORDERED: lisINopril 20 MG (PRINIVIL) TABLET PO NR (10:00)
[2021-08-23] MEDS ORDERED: LISI20TA26 PO (11:08)
--- NOTE | 2021-08-23 13:55 | Physical Therapy Daily Note ---
PT Daily Note-Current Subjective Pt. hesitant to participate in therapy. States he cant leave here today , not sure if he can move, rates pain in left "terry" area 01/17. Pt moans and holds breath and grimaces with all movement. This DISABILITY SPECIALIST suggests pt move himself as much as possible and take control of his movement and his progress. Pt. agrees but r eluctantly Pain Numeric Pain Scale: 8 Location: Left Location Body Site: Calf (ant tib) Pain Description: Stabbing Mental Status Patient Orientation: Normal For Age Transfers SCALE: Activities may be completed with or without assistive devices. 7-Loeuhvvbqv-unkbryv completes the activity by him/herself with no assistance from a helper. 5-Set-up or Clean-up Assistance-helper sets up or cleans up; patient completes activity. [place] assists only prior to or following the activity. 4-Supervision or Touching Assistance-helper provides verbal cues and/or touching/steadying and/or contact guard assistance as patient completes activity. Assistance may be provided throughout the activity or intermittently. 3-Partial/Moderate Assistance-helper does LESS THAN HALF the effort. [place] lifts, holds or supports trunk or limbs, but provides less than half the effort. 2-Substantial/Maximal Assistance-helper does MORE THAN HALF the effort. [place] lifts or holds trunk or limbs and provides more than half the effort. 3-Dobcpjzgy-kvkaeg does ALL the effort. Patient does none of the effort to complete the activity. Or, the assistance of 2 or more helpers is required for the patient to complete the activity. If activity was not attempted, code reason: 7-Patient Refused. 9-Not Applicable-not attempted and the patient did not perform the activity before the current illness, exacerbation or injury. 10-Not Attempted due to Environmental Limitations-(lack of equipment, weather restraints, etc.). 88-Not Attempted due to Medical Conditions or Safety Concerns. Sit to Stand (QC): 4 Chair/Vnw-ha-Rkupw Xfer(QC): 4 pt. was reclined in chair and needed significant time to lower leg rest as he stated it was severe pain. Weight Bearing Right Lower Extremity: Right Full Weight Bearing Left Lower Extremity: Left Non Weight Bearing Gait Training Does the Patient Walk?: Yes Walk 10 feet (QC): 4 Walk 50 ft with 2 Turns(QC): 4 Gait Persons Needed: 1 Gait Assistive Device: FWW instruction in NWBing and using UEs for wt bearing on FWW, instruction for backing up, turning etc while maintaining NWB Left Exercises Supine Ex: Straight leg raise (left) Supine Reps: 5 Treatments pt. very sun sensitive and stops several times during Rx to renegotiate whether he is going to continue. Pt.needs max encouragement to cont. sit to stand , gait 50 ft, 10 ft CGA, FWW NWB left maintained well, SLR left with mod assist x 3-5 reps per tolerance, pt. seems a bit dramatic Assessment Current Status: Good Progress PT [facility] Goals Medicaid Billing Specialist Goals PT [facility] Goals Time Frame: Aug 30, 2021 Roll Left & Right (QC): 6 Sit to Lying (QC): 6 Lying-Sitting on Side/Bed(QC): 6 Sit to Stand (QC): 6 Chair/Mkr-hy-Zbmmn Xfer(QC): 6 Walk 10 feet (QC): 4 PT Plan Treatment/Plan Treatment Plan: Continue Plan of Care Treatment Plan: Bed Mobility, Education, Functional Activity Safia, Functional Strength, Gait, Safety, Therapeutic Exercise, Transfers Treatment Duration: Aug 30, 2021 Frequency: 11 times per week Estimated Hrs Per Day: .25 hour per day Patient and/or Family Agrees t: Yes Safety Risks/Education Patient Education: Gait Training, Transfer Techniques, Correct Positioning, Disease Process, Safety Issues Teaching Recipient: Patient, Family Teaching Methods: Demonstration, Discussion Response to Teaching: Verbalize Understanding, Return Demonstration, Reinforcement Needed Time/GCodes Time In: 1320 Time Out: 1340 Total Billed Treatment Time: 20 Total Billed Treatment 1,GT20 m DANIELLE GUERRERO DISABILITY SPECIALIST Aug 23, 2021 13:55
--- NOTE | 2021-08-23 14:04 | Anesthesia-General Post-Op ---
General Patient Condition Mental Status/LOC: Same as Preop Cardiovascular: Satisfactory Nausea/Vomiting: Absent Respiratory: Satisfactory Pain: Controlled Complications: Absent Post Op Complications Complications None Follow Up Care/Instructions Patient Instructions None needed. Anesthesia/Patient Condition Patient Condition Patient is doing well, no complaints, stable vital signs, no apparent adverse anesthesia problems. No complications reported per nursing. TOSHIA BOLANOS CRNA Aug 23, 2021 14:04
--- NOTE | 2021-08-23 19:39 | Consultation - Hospitalist ---
HPI History of Present Illness: HPI/Chief Complaint Rui Mercer is a 26 year old male with PMH alcohol abuse, tobacco abuse, marijuana abuse, obesity, anxiety, depression, who presented after a fall with a tib/fib fracture. Orthopedic surgery is primary and performed surgical repair 08/22. His blood pressure has been elevated. His pain is now well controlled. The hospitalist service has been consulted to assist with his hypertension. He does not follow with a doctor. He does not take any medications regularly. He says that everyone in his family dies of heart attacks. He vapes. He drinks alcohol. He smokes marijuana. 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 Patients Allergies have been reviewed. Allergies Allergies Coded Allergies No Known Drug Allergies (Kolsjkcris09/1/11) Past Nzsnnfu-Tipqjp-Gkuubx Hx Patient Social History Tobacco Use?: No Smokeless Tobacco Frequency: Never a User Use of E-Cig and/or Vaping dev: No Substance use?: Yes Substance type: Marijuana Additional substance use comme: last marijuana use was 2 days ago Substance frequency: Couple times a week Alcohol Use?: Yes Alcohol type: Beer Additional Alcohol Comments: last alcohol was on 08/21 at 21:00 Pt feels they are or have been: No Immunizations Up To Date Tetanus Booster (TDap): More Than 5 Years PED Vaccines UTD: No Seasonal Allergies Seasonal Allergies: No Current Status Advance Directives: No Communicates: Verbally Primary Language: British Preferred Spoken Language: British Is interpretation needed?: No Past Medical History Surgeries: Tonsillectomy Currently Using CPAP: No Currently Using BIPAP: No Sexually Transmitted Disease: No HIV/AIDS: No Anxiety, Suicide Attempts, Depression Blood Disorders: No Adverse Reaction/Blood Tranf: No Family Medical History Hypertension 19 FATHER Psychosocial problem 19 MOTHER Review of Systems Constitutional: no symptoms reported EENTM: no symptoms reported Respiratory: no symptoms reported Cardiovascular: no symptoms reported Gastrointestinal: no symptoms reported Genitourinary: no symptoms reported Musculoskeletal: no symptoms reported Skin: no symptoms reported Psychiatric/Neurological: No Symptoms Reported Physical Exam Physical Exam Vital Signs Vital Signs - First Documented 3/15/22 05:54 Temp 36.3 Pulse 113 Resp 22 B/P (MAP) 135/75 (95) Pulse Ox 96 O2 Delivery Room Air Capillary Refill : Less Than 3 SecondsLess Than 3 Seconds Height, Weight, BMI Height: 5'8.00" Weight: 192lbs. 8.0oz. 87.253894ti; 33.80 BMI Method:Estimated General Appearance: No Apparent Distress, WD/WN HEENT: PERRL/EOMI, Pharynx Normal Neck: Normal Inspection, Supple Respiratory: Lungs Clear, No Respiratory Distress Cardiovascular: Regular Rate, Rhythm, No Edema, No Murmur Gastrointestinal: Normal Bowel Sounds, Non Tender, Soft Extremity: Normal Inspection, Non Tender, No Pedal Edema Neurologic/Psychiatric: Alert, Oriented x3, No Motor/Sensory Deficits, Normal Mood/Affect Skin: Normal Color, Warm/Dry Results Results/Procedures Labs Laboratory Tests 08/22/21 06:03 08/23/21 05:36 Patient resulted labs reviewed. Imaging: Reviewed Imaging Report Assessment/Plan Assessment and Plan Assess & Plan/Chief Complaint Hypertension Begin Lisinoprl Hyperglycemia Check A1C Obesity Diet and exercise modifications recommended Tobacco abuse Alcohol abuse Marijuana abuse Cessation recommended Diagnosis/Problems Diagnosis/Problems (1) Fracture of left tibia and fibula Status: Acute Qualifiers: Encounter type: initial encounter Fracture type: closed Qualified Codes: S82.202A - Unspecified fracture of shaft of left tibia, initial encounter for closed fracture; S82.402A - Unspecified fracture of shaft of left fibula, initial encounter for closed fracture (2) HTN (hypertension) Status: Acute Qualifiers: Hypertension type: primary hypertension Qualified Codes: I10 - Essential (primary) hypertension LASHELL BUSTOS MD Aug 23, 2021 19:39
[2021-08-24 04:25] VITALS: BP 157/98
[2021-08-24] MEDS: oxyCODONE/APAP 5/325MG (PERCOCET 5) TABLET PO PRN ×2 (04:53→09:00)
[2021-08-24 06:25] LABS: HEMOGLOBIN 12.9 g/dL (13.3-17.7)
[2021-08-24 08:14] VITALS: BP 134/86
[2021-08-24] MEDS ORDERED: lisINopril 20 MG (PRINIVIL) TABLET PO SCH (09:00)
[2021-08-24] MEDS: ASPIRIN E.C. 81 MG (ECOTRIN) TAB PO SCH (09:00)
--- NOTE | 2021-08-24 09:46 | Physical Therapy Daily Note ---
PT Daily Note-Current Subjective Patient was just waking up prior to treatment. Patient reports the pain has traveled more distally down the L lower leg. patient verbalized consent to treat. Pain Numeric Pain Scale: 8 Mental Status Patient Orientation: Person, Place, Situation Transfers SCALE: Activities may be completed with or without assistive devices. 5-Wrqieamtbz-histzsu completes the activity by him/herself with no assistance from a helper. 5-Set-up or Clean-up Assistance-helper sets up or cleans up; patient completes activity. [place] assists only prior to or following the activity. 4-Supervision or Touching Assistance-helper provides verbal cues and/or touching/steadying and/or contact guard assistance as patient completes a ctivity. Assistance may be provided throughout the activity or intermittently. 3-Partial/Moderate Assistance-helper does LESS THAN HALF the effort. [place] lifts, holds or supports trunk or limbs, but provides less than half the effort. 2-Substantial/Maximal Assistance-helper does MORE THAN HALF the effort. [place] lifts or holds trunk or limbs and provides more than half the effort. 5-Iyqxxiiye-phbyzx does ALL the effort. Patient does none of the effort to complete the activity. Or, the assistance of 2 or more helpers is required for the patient to complete the activity. If activity was not attempted, code reason: 7-Patient Refused. 9-Not Applicable-not attempted and the patient did not perform the activity before the current illness, exacerbation or injury. 10-Not Attempted due to Environmental Limitations-(lack of equipment, weather restraints, etc.). 88-Not Attempted due to Medical Conditions or Safety Concerns. Lying to Sitting/Side of Bed(Q: 4 Sit to Stand (QC): 6 Weight Bearing Right Lower Extremity: Right Full Weight Bearing Left Lower Extremity: Left Non Weight Bearing Gait Training Walk 10 feet (QC): 4 Walk 50 ft with 2 Turns(QC): 4 Gait Assistive Device: FWW CGA, slow but steady ambulation, compliant with NWB on left leg Wheelchair Training Does the Pt Use a Wheelchair?: No Type of Wheelchair: N/A Exercises Seated Therapy Exercises: Long arc quads (Active assisted 10 reps), Hip flexion (5 reps) Treatments LE strenght, mobility, ROM Assessment Current Status: Good Progress Upon lying->sit, patient reported pain in LLE and required assistance to scoot the left leg off the bed. Patient walked a distance of 100ft with walker with one rest break, without assistance from PT. Patient was able to do toileting independently. During hip flexion exercises, patient was unable to correctly motor plan to initiate movement, and required verbal and tactile cues, but still lacked strenght to produce the movement. Patient also lacked strength with LAQ and required active assistance. Patient could only get to lacking 45 degrees of full knee extension. Patient was left seated in chair with all needs met. PT Detention Goals Detention Goals PT Detention Goals Time Frame: Aug 30, 2021 Roll Left & Right (QC): 6 Sit to Lying (QC): 6 Lying-Sitting on Side/Bed(QC): 6 Sit to Stand (QC): 6 Chair/Mia-zb-Irtgh Xfer(QC): 6 Walk 10 feet (QC): 4 PT Plan Problem List Problem List: Activity Tolerance, Functional Strength, Safety, Balance, Gait, Transfer, Bed Mobility, ROM Treatment/Plan Treatment Plan: Continue Plan of Care Treatment Plan: Bed Mobility, Education, Functional Activity Safia, Functional Strength, Gait, Safety, Therapeutic Exercise, Transfers Treatment Duration: Aug 30, 2021 Frequency: 11 times per week Estimated Hrs Per Day: .25 hour per day Patient and/or Family Agrees t: Yes Safety Risks/Education Patient Education: Gait Training, Transfer Techniques, Reviewed Precautions, Correct Positioning, Safety Issues Teaching Recipient: Patient Teaching Methods: Demonstration, Discussion Response to Teaching: Verbalize Understanding Time/GCodes Time In: 909 Time Out: 924 Total Billed Treatment Time: 15 Total Billed Treatment 1 visit FA ANUEL MCNAMARA PT Aug 24, 2021 09:46
--- NOTE | 2021-08-24 10:26 | Discharge Inst-Simple/Standard ---
Discharge Inst-Standard Reconcile Patient Problems Problems Reviewed?: Yes Discharge Medications New, Converted or Re-Newed RX: Transmitted to Pharmacy Patient Instructions/Follow Up Plan of Care/Instructions/FU: Has follow-up appointment in orthopedic clinic on 08/28/2021 Continue with walker or crutch ambulation nonweightbearing on the left Oxycodone 5/325 #41 p.o. every 4 hours as needed pain Continue with lisinopril as per Dr. Viera Follow-up appointment with family physician in approximately 1 week Continue elevation and ice left leg Activity as Tolerated: No Discharge Diet: No Restrictions SOHPIA CHEN MD Aug 24, 2021 10:26
--- NOTE | 2021-08-24 10:33 | Discharge Summary ---
Discharge Summary Hospital Course Problems/Dx: (1) Fracture of left tibia and fibula Status: Acute Qualifiers: Qualified Codes: S82.202A - Unspecified fracture of shaft of left tibia, initial encounter for closed fracture; S82.402A - Unspecified fracture of shaft of left fibula, initial encounter for closed fracture (2) HTN (hypertension) Status: Acute Qualifiers: Qualified Codes: I10 - Essential (primary) hypertension Hospital Course Date of Admission: Aug 22, 2021 at 06:50 Admission Diagnosis : Closed midshaft fracture left tibia and fibula [facility]: 08[facility]24[facility]21 Discharge Diagnosis: [Closed midshaft fracture left tibia and fibula status post closed IM rodding left tibia ] Hospital Course:The patient was admitted through the emergency room on 08/21/2021. He had been drinking most of the night and went out for a walk and stepped in a hole. X-rays in the emergency room showed a displaced fracture of the midshaft left tibia and fibula. He was splinted and admitted. He was taken to the operating room that same morning and underwent a closed IM rodding of the left tibia. He did well with the surgery. Postop he had expected pain. No evidence of compartment syndrome. He was started on physical therapy walker/crutch ambulation nonweightbearing on the left. He progressed slowly but on the second postoperative day he was doing fairly well and ready for discharge. He was initially started on IV pain medication then converted over to oral medication. I also had Dr. Viera see him as his blood pressure was elevated and he started him on lisinopril. He will continue with this after discharge. He has a follow-up appointment in the clinic on 08/28/2021. He is to follow-up with family physician at approximately 1 week postop for follow-up on his hypertension. His hemoglobin dropped postop but expected amount. His dressing was changed to his anterior knee prior to discharge and it showed no redness or drainage. [ ] Labs and Pending Lab Test: Laboratory Tests 08/24/21 06:12: Hemoglobin 12.9L, Hematocrit 40 Microbiology 08/22/21 MRSA Screen - Final, Complete MRSA not isolated Home Meds Active Lisinopril 20 Mg Tablet 20 Mg PO 1000 30 Days Assessment/Pt Instructions Doing well 2 days postop Discharge Instructions Discharge Diet: No Restrictions Activity as Tolerated: No Discharge Physical Examination Vital Signs Vital Signs Date Time Temp Pulse Resp B/P (MAP) Pulse Ox O2 Delivery O2 Flow Rate FiO2 08/24/21 08:14 36.4 96 20 134/86 (102) 94 Room Air 08/22/21 15:30 2.50 Allergies: Coded Allergies: No Known Drug Allergies (Unverified , 03/10/11) Discharge Summary Date of Admission Aug 22, 2021 at 06:50 Date of Discharge Discharge Diagnosis (1) Fracture of left tibia and fibula Status: Acute Qualifiers: Qualified Codes: S82.202A - Unspecified fracture of shaft of left tibia, initial encounter for closed fracture; S82.402A - Unspecified fracture of shaft of left fibula, initial encounter for closed fracture (2) HTN (hypertension) Status: Acute Qualifiers: Qualified Codes: I10 - Essential (primary) hypertension SOPHIA CHEN MD Aug 24, 2021 10:33
--- NOTE | 2021-08-24 10:35 | Progress Note - Ortho ---
Progress Note Subjective Date of Exam 08/24/21 Chief Complaint POD#2 Closed IM rodding midshaft fracture left tibia and fibula HPI/Events since last exam Rui is doing better at 2 days postop. He is having less pain. He is up ambulating better today. Still has some mild pain. No other complaints. Review of Systems Reviewed and no additions or changes Allergies: Coded Allergies: No Known Drug Allergies (Unverified , 03/10/11) Home Meds Active Scripts Lisinopril (Lisinopril) 20 Mg Tablet, 20 MG PO 1000 for 30 Days, #30 TAB 0 Refills Prov:LASHELL BUSTOS MD 08/23/21 Objective Exam Constitutional: [] HEENT: [] Neck: [] Cardiovascular: [] Respiratory: [] Gastrointestinal: [] Genitourinary: [] Skin: [] Back/Spine: [] Extremities: [Splint is intact. He can move his toes and has normal sensation with good cap refill. Toes are pink and warm. I change his dressing anterior wound left knee and there was no redness or drainage.] Neurologic: [] Psychiatric: [] Hematologic/lymphatic/immunologic: [] Vital Signs Vital Signs Date Time Temp Pulse Resp B/P (MAP) Pulse Ox O2 Delivery O2 Flow Rate FiO2 08/24/21 08:14 36.4 96 20 134/86 (102) 94 Room Air 08/24/21 08:00 Room Air 08/24/21 04:25 36.7 84 18 157/98 (117) 96 Room Air 08/23/21 23:35 36.5 72 16 119/69 (86) 94 Room Air 08/23/21 20:11 37.0 107 20 134/83 (100) 95 Room Air 08/23/21 20:00 Room Air 08/23/21 16:25 36.3 61 20 136/76 (96) 97 Room Air 08/23/21 13:34 96 151/96 (114) 08/23/21 12:03 36.8 96 20 154/94 (114) 92 Room Air I & O 08/24/21 07:00 Intake Total 3587 ml Output Total 600 ml Balance 2987 ml Lab Results Laboratory Tests 08/24/21 06:12: Hemoglobin 12.9L, Hematocrit 40 Microbiology 08/22/21 MRSA Screen - Final, Complete MRSA not isolated Assessment and Plan Assessment Doing well second day postop Problem List Unchanged Plan Discharge. Follow-up in the office on 08/28/2021. Follow-up in 1 week for his hypertension with family physician. Continue with oxycodone 5/325 for pain. Continue with lisinopril for hypertension per Dr. Bustos Final Diagonsis Closed midshaft fracture left tibia and fibula status post closed IM rodding Level of the visit: Level 3 Diagnosis/Problems Diagnosis/Problems (1) Fracture of left tibia and fibula Status: Acute Qualifiers: Qualified Codes: S82.202A - Unspecified fracture of shaft of left tibia, initial encounter for closed fracture; S82.402A - Unspecified fracture of shaft of left fibula, initial encounter for closed fracture (2) HTN (hypertension) Status: Acute Qualifiers: Qualified Codes: I10 - Essential (primary) hypertension SOPHIA CHEN MD Aug 24, 2021 10:35
[2021-08-24 11:45] VITALS: BP 140/83
[2021-08-24 13:07] VITALS: BP 140/83
== END 2021-08-24 10:35 | disposition home or self-care (01) ==
LOC: EDUNIT# 05:46 → ER 05:51 → SDC 06:50 → UNDOADMOB 06:50 → 4TH 06:50 → SDC 08-23 08:55 → 4TH 08-23 08:56 → UNDODISOB 08-24 13:07
PROVIDERS: ADMIT Orthopaedic Surgery; ATTEND Orthopaedic Surgery
DX: S82.202A Unspecified fracture of shaft of left tibia, initial encounter for closed fracture (principal); S82.402A Unspecified fracture of shaft of left fibula, initial encounter for closed fracture; I10 Essential (primary) hypertension; E66.9 Obesity, unspecified; F12.10 Cannabis abuse, uncomplicated; E72.51 Non-ketotic hyperglycinemia; F10.10 Alcohol abuse, uncomplicated; W17.2XXA Fall into hole, initial encounter
CPT/HCPCS: 29505; 36415; 73590; 76000; 80053; 80306; 80320; 83036; 85014; 85018; 85025; 87081; 96374; G0378

== ENCOUNTER → 2021-08-28 | Outpatient (CLI) | payer BC ==
[~2021-08-28] MED LIST changes: +LISI20TA26 PO
== END ==
LOC: ORTHO 11:08
PROVIDERS: ATTEND Orthopaedic Surgery
DX: S82.202A Unspecified fracture of shaft of left tibia, initial encounter for closed fracture (principal); X58.XXXA Exposure to other specified factors, initial encounter

== ENCOUNTER → 2021-09-06 | Outpatient (CLI) | payer BC ==
--- NOTE | 2021-09-06 11:14 | Diagnostic Imaging Report ---
INDICATION: Follow-up left leg fractures. TIME OF EXAM: 10:20 a.m. COMPARISON: Correlation is made with prior study 08/22/2021. FINDINGS: Two views of the left tibia and fibula demonstrate an intramedullary mary transfixing the mid shaft left tibial fracture. There is also a non-fixated mid shaft fibular fracture. Overall alignment is anatomic. IMPRESSION: Postop and post-traumatic changes to the tibia and fibula, as described. Overall alignment is anatomic. Dictated by: Dictated on workstation # [id number]
== END ==
LOC: ORTHO 10:12
PROVIDERS: ATTEND Orthopaedic Surgery
DX: S82.252D Displaced comminuted fracture of shaft of left tibia, subsequent encounter for closed fracture with routine healing (principal); X58.XXXD Exposure to other specified factors, subsequent encounter
CPT/HCPCS: 73590

== ENCOUNTER → 2021-10-04 | Outpatient (CLI) | payer BC ==
--- NOTE | 2021-10-04 14:21 | Diagnostic Imaging Report ---
INDICATION: Left leg injury, IM mary placement. COMPARISON: 09/06/2021 FINDINGS: 4 views left tibia-fibula demonstrate some callus formation involving the tibial fracture site. Comminuted fracture of the fibula is well aligned and unchanged. IM mary is well-positioned. IMPRESSION: Stable tibia fibula fractures. Status post IM mary placement. Dictated by: Dictated on workstation # [id number]
== END ==
LOC: ORTHO 10:28
PROVIDERS: ATTEND Orthopaedic Surgery
DX: S82.252D Displaced comminuted fracture of shaft of left tibia, subsequent encounter for closed fracture with routine healing (principal); X58.XXXD Exposure to other specified factors, subsequent encounter
CPT/HCPCS: 73590

== ENCOUNTER 2021-10-06 12:35 | Outpatient (RCR) | payer BC | END 2021-10-07 | disposition home or self-care (01) | PROVIDERS: ATTEND Orthopaedic Surgery | DX: S82.252D Displaced comminuted fracture of shaft of left tibia, subsequent encounter for closed fracture with routine healing (principal); X58.XXXD Exposure to other specified factors, subsequent encounter ==

== ENCOUNTER → 2021-10-25 | Outpatient (CLI) | payer BC ==
--- NOTE | 2021-10-25 10:48 | Diagnostic Imaging Report ---
INDICATION: Fracture, followup. TECHNIQUE: AP and lateral views of the left tibia and fibula. CORRELATION STUDY: 10/04/2021. FINDINGS: Longstem intramedullary mary with 2 proximal and 2 distal fixation screws transfixing an obliquely oriented mid to distal tibial shaft fracture is present. There is perhaps some early reparative change with mild callus formation. Fracture line, however, remains well-visualized. Alignment is unchanged and near anatomic. Comminuted fractured of the left mid fibular shaft is again demonstrated and overall unchanged. Trace periosteal reaction with otherwise no significant interval healing changes. IMPRESSION: Minimal early healing changes of the tibial and fibular fractures. Fracture lines remain well visualized and are unchanged in their alignment. Dictated by: Dictated on workstation # [id number]
== END ==
LOC: ORTHO 10:20
PROVIDERS: ATTEND Orthopaedic Surgery
DX: S82.252D Displaced comminuted fracture of shaft of left tibia, subsequent encounter for closed fracture with routine healing (principal); X58.XXXD Exposure to other specified factors, subsequent encounter
CPT/HCPCS: 73590

== ENCOUNTER 2021-11-01 13:34 | Outpatient (RCR) | payer BC | END 2021-11-07 | disposition home or self-care (01) | PROVIDERS: ATTEND Orthopaedic Surgery | DX: S82.252D Displaced comminuted fracture of shaft of left tibia, subsequent encounter for closed fracture with routine healing (principal); I10 Essential (primary) hypertension; X58.XXXD Exposure to other specified factors, subsequent encounter ==

== ENCOUNTER → 2021-11-15 | Outpatient (CLI) | payer BC ==
--- NOTE | 2021-11-15 12:06 | Diagnostic Imaging Report ---
INDICATION: Follow-up left leg fracture. Time of Exam: 10:43 AM Correlation is made with prior radiograph from 10/25/2021. Intramedullary mary transfixes the fracture of the distal tibia near the junction of the mid and distal 3rd. Overall alignment is anatomic. Fracture line remains clearly visible. There does appear to be some callus formation. There is also a midshaft fibular fracture which is not transfixed. Alignment appears stable. Alignment at the knee and ankle is normal. IMPRESSION: Tibial and fibular fractures, stable when compared with prior examination from 10/25/2021. Fracture lines remain clearly visible. Dictated by: Dictated on workstation # [id number]
== END ==
LOC: ORTHO 10:32
PROVIDERS: ATTEND Orthopaedic Surgery
DX: S82.252D Displaced comminuted fracture of shaft of left tibia, subsequent encounter for closed fracture with routine healing (principal); X58.XXXD Exposure to other specified factors, subsequent encounter
CPT/HCPCS: 73590

== ENCOUNTER → 2021-12-07 | Outpatient (RCR) | payer BC | END | disposition home or self-care (01) | PROVIDERS: ATTEND Orthopaedic Surgery | DX: S82.252D Displaced comminuted fracture of shaft of left tibia, subsequent encounter for closed fracture with routine healing (principal); I10 Essential (primary) hypertension; X58.XXXD Exposure to other specified factors, subsequent encounter ==

== ENCOUNTER 2022-01-01 14:18 | Outpatient (RCR) | payer BC | END 2022-01-07 | disposition home or self-care (01) | PROVIDERS: ATTEND Orthopaedic Surgery | DX: S82.252D Displaced comminuted fracture of shaft of left tibia, subsequent encounter for closed fracture with routine healing (principal); I10 Essential (primary) hypertension; X58.XXXD Exposure to other specified factors, subsequent encounter ==

== ENCOUNTER → 2022-01-01 | Outpatient (CLI) | payer BC ==
--- NOTE | 2022-01-01 13:27 | Diagnostic Imaging Report ---
INDICATION: Comminuted fracture of the left tibia with pinning EXAMINATION: Left tib/fib, 2 views. FINDINGS: A medullary nail is present in the tibia. There is anatomical alignment. Interlocking screws are intact. There has been some early callus formation forming across the tibial fracture. The comminuted mid fibular shaft fracture is in good alignment without significant callus formation at this time. IMPRESSION: Anatomical alignment of the tibial and fibular fractures with early bony callus formation noted. Dictated by: Dictated on workstation # [id number]
== END ==
LOC: ORTHO 09:43
PROVIDERS: ATTEND Orthopaedic Surgery
DX: S82.252D Displaced comminuted fracture of shaft of left tibia, subsequent encounter for closed fracture with routine healing (principal); X58.XXXD Exposure to other specified factors, subsequent encounter
CPT/HCPCS: 73590